=== PATIENT | male | born 1990 | race African-American/Black ===

== ENCOUNTER 2019-02-04 12:59 | Emergency (ER) | payer SELFPAY ==
--- NOTE | 2019-02-04 13:30 | ER Document Report ---
ED Medical Screen (RME) - General Chief Complaint: Psych Problem Stated Complaint: PSYCH EVAL Time Seen by Provider: 02/04/19 13:28 Notes: Patient is a 29-year-old male with a history of bipolar, schizophrenia, ADD, ADHD who presents emergency department with a chief complaint of "wanting help." Patient reports earlier today he did have some suicidal ideation. Patient reports he did not have a specific plan. Patient denies homicidal ideation. Patient reports he is having some depression and anxiety. Patient reports he is not currently taking any medication for his mental health diagnoses. He states he was on Depakote about 1 year ago but they did not make medication changes and he did not start this. Patient reports he does smoke about a half a pack of cigarettes per day, does smoke marijuana occasionally and is a social drinker. TRAVEL OUTSIDE OF THE [place] IN LAST 30 DAYS: No - Related Data Allergies/Adverse Reactions: No Known Allergies Allergy (Verified 02/04/19 13:22) Past Medical History - Social History Chew tobacco use (# tins/day): No Drug Abuse: None Physical Exam - Vital signs Vitals: Temp Pulse Resp BP Pulse Ox 98.5 F 78 16 148/88 H 99 02/04/19 13:06 02/04/19 13:06 02/04/19 13:06 02/04/19 13:06 02/04/19 13:06 - Cardiovascular Rhythm: Regular Heart sounds: Normal auscultation, S1 appreciated, S2 appreciated Course - Re-evaluation Re-evalutation: 02/04/19 13:30 I have greeted and performed a rapid initial assessment of this patient. A comprehensive ED assessment and evaluation of the patient, analysis of test results and completion of the medical decision making process will be conducted by additional ED providers. - Vital Signs Vital signs: Temp Pulse Resp BP Pulse Ox 98.5 F 78 16 148/88 H 99 02/04/19 13:22 02/04/19 13:22 02/04/19 13:22 02/04/19 13:22 02/04/19 13:22
[2019-02-04 13:56] LABS: ABSOLUTE EOSINOPHILS # (AUTO) 0.1 10^3/uL (0.0-0.6); ABSOLUTE LYMPHOCYTES (AUTO) 2.8 10^3/uL (0.5-4.7); ABSOLUTE MONOCYTES (AUTO) 0.4 10^3/uL (0.1-1.4); ABSOLUTE NEUT (AUTO) 3.4 10^3/uL (1.7-8.2); BASOPHILS % (AUTO) 0.6 % (0-2); EOSINOPHILS % (AUTO) 1.2 % (0-6); HEMATOCRIT 47.4 % (37.9-51.0); HEMOGLOBIN 15.7 g/dL (13.5-17.0); LYMPHOCYTES % (AUTO) 41.5 % (13-45); MEAN CORPUSCULAR HEMOGLOBIN 26.3 pg (27.0-33.4); MEAN CORPUSCULAR HGB CONC 33.1 g/dL (32.0-36.0); MEAN CORPUSCULAR VOLUME 80 fl (80-97); MONOCYTES % (AUTO) 6.5 % (3-13); PLATELET COUNT 280 10^3/uL (150-450); RED BLOOD COUNT 5.95 10^6/uL (4.35-5.55); RED CELL DISTRIBUTION WIDTH 14.2 % (11.5-14.0); SEGMENTED NEUTROPHILS % (AUTO) 50.2 % (42-78); TOTAL CELLS COUNTED % (AUTO) 100 %; WHITE BLOOD COUNT 6.7 10^3/uL (4.0-10.5)
[2019-02-04 14:05] LABS: APPEARANCE,URINE CLEAR; BILIRUBIN,URINE NEGATIVE (NEGATIVE); COLOR,URINE YELLOW; GLUCOSE, URINE NEGATIVE (NEGATIVE); KETONES,URINE NEGATIVE (NEGATIVE); LEUKOCYTE ESTERASE,URINE NEGATIVE (NEGATIVE); NITRITE,URINE NEGATIVE (NEGATIVE); PROTEIN,URINE NEGATIVE (NEGATIVE); URINE SPECIFIC GRAVITY 1.019
[2019-02-04 14:19] LABS: ALBUMIN 4.8 g/dL (3.5-5.0); ALKALINE PHOSPHATASE 77 U/L (38-126); ANION GAP 10 (5-19); ASPARTATE AMINO TRANSFERASE 41 U/L (17-59); BILIRUBIN,DIRECT 0.1 mg/dL (0.0-0.4); BLOOD UREA NITROGEN 9 mg/dL (7-20); CALCIUM 9.7 mg/dL (8.4-10.2); CARBON DIOXIDE 28 mmol/L (22-30); CHLORIDE 103 mmol/L (98-107); GLUCOSE 97 mg/dL (75-110); POTASSIUM 4.2 mmol/L (3.6-5.0); TOTAL PROTEIN 8.3 g/dL (6.3-8.2)
[2019-02-04 14:21] LABS: ACETAMINOPHEN < 10 ug/mL (10-30); ALCOHOL < 10 mg/dL (NONE DETECTED); SALICYLATE < 1.0 mg/dL (2.0-20.0)
[2019-02-04 14:24] LABS: URINE AMPHETAMINES SCREEN NEGATIVE; URINE BARBITURATES SCREEN NEGATIVE; URINE BENZODIAZEPINES SCREEN NEGATIVE; URINE COCAINE SCREEN NEGATIVE; URINE METHADONE SCREEN NEGATIVE; URINE PHENCYCLIDINE SCREEN NEGATIVE
[2019-02-04 14:25] LABS: URINE MARIJUANA (THC) SCREEN UNCONFIRMED POSITIVE
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
[2019-02-04 17:39] VITALS: BP 112/74
--- NOTE | 2019-02-04 23:41 | EKG REPORT ---
SEVERITY:- NORMAL ECG - SINUS RHYTHM : Confirmed by: Lissette Jackson MD 04-Feb-2019 23:40:49
== END 2019-02-04 17:39 | disposition home or self-care (01) ==
LOC: ER 12:59
DX: F29 Unspecified psychosis not due to a substance or known physiological condition (principal); F31.9 Bipolar disorder, unspecified; F20.9 Schizophrenia, unspecified; F17.210 Nicotine dependence, cigarettes, uncomplicated
CPT/HCPCS: 36415; 80053; 80307; 81001; 85025; 93005; 93010; 99285

== ENCOUNTER 2019-02-05 03:46 | Emergency (ER) | payer SELFPAY ==
--- NOTE | 2019-02-05 04:21 | ER Document Report ---
ED General - General Chief Complaint: Depression Stated Complaint: Depressed Time Seen by Provider: 02/05/19 04:02 Notes: Patient is a 29-year-old male that comes the emergency department for chief complaint of feeling depressed and feeling tired. He states that he was here earlier today and had tests, he states that he was evaluated and then discharged. He states that he is here from [place] to be with his girlfriend, he states that he "something happened between us" and he became upset and now he has nowhere to go. He states that he thought that when he was leaving from here he could be given a ride back to [place] but he called the person who gave him a ride in the first place and they told him they were unable to. Patient states he wandered around and started feeling weak and came back in to see if he could get additional assistance because he could not go back to [place]. Patient reports he has a history of schizophrenia, bipolar, ADHD, states he used to be on Depakote but is not on anything currently and has not taken anything in months. He smokes marijuana occasionally, denies recreational drugs otherwise. Denies any other medical history. He states that he is depressed with his situation but he is not homicidal or suicidal. Patient states now that he is here he is hoping like he can be provided with medication for depression and additional psychiatric services. TRAVEL OUTSIDE OF THE [place] IN LAST 30 DAYS: No - Related Data Allergies/Adverse Reactions: No Known Allergies Allergy (Verified 02/04/19 13:22) Past Medical History - General Information source: Patient - Social History Smoking Status: Never Smoker Frequency of alcohol use: Occasional Drug Abuse: Marijuana Lives with: Alone Family History: Reviewed & Not Pertinent Psychiatric Medical History: Reports: Hx Attention Deficit Hyperactivity Disorder, Hx Bipolar Disorder, Hx Schizophrenia Surgical Hx: Negative - Immunizations Immunizations up to date: Yes Hx Diphtheria, Pertussis, Tetanus Vaccination: Yes Review of Systems - Review of Systems Constitutional: See HPI EENT: No symptoms reported Cardiovascular: No symptoms reported Respiratory: No symptoms reported Gastrointestinal: No symptoms reported Genitourinary: No symptoms reported Male Genitourinary: No symptoms reported Musculoskeletal: No symptoms reported Skin: No symptoms reported Hematologic/Lymphatic: No symptoms reported Neurological/Psychological: See HPI Physical Exam - Vital signs Vitals: Temp Pulse Resp BP Pulse Ox 97.7 F 78 14 149/84 H 99 02/05/19 03:55 02/05/19 03:55 02/05/19 03:55 02/05/19 03:55 02/05/19 03:55 - Notes Notes: GENERAL: Alert, interacts well. No acute distress. HEAD: Normocephalic, atraumatic. EYES: Pupils equal, round, and reactive to light. Extraocular movements intact. ENT: Oral mucosa moist, tongue midline. Oropharynx unremarkable. Airway patent. NECK: Full range of motion. Supple. Trachea midline. LUNGS: Clear to auscultation bilaterally, no wheezes, rales, or rhonchi. No respiratory distress. HEART: Regular rate and rhythm. No murmur ABDOMEN: Soft, non-tender. Non-distended. EXTREMITIES: Moves all 4 extremities spontaneously. No edema, normal radial and dorsalis pedis pulses bilaterally. No cyanosis. BACK: no cervical, thoracic, lumbar midline tenderness. No saddle anesthesia, normal distal neurovascular exam. Moves all extremities in full range of motion. NEUROLOGICAL: Alert and oriented x3. Normal speech. Cranial nerves II through XII grossly intact. PSYCH: Patient makes poor eye contact but answers questions appropriately and does not appear to be responding to internal stimuli SKIN: Warm, dry, normal turgor. No rashes or lesions noted. Course - Re-evaluation Re-evalutation: Patient just completed an IVC work-up which was normal. Patient was complaining that he felt weak but on my evaluation he denies any symptoms, vital signs unremarkable, his examination is unremarkable, he is alert and well-appearing. Work-up will not be repeated because this was completed within 24 hours and there is no indication that patient has had decompensation. Patient is requesting mental health evaluation and assistance including possible medication such as Depakote. He is requesting to be evaluated by them. Patient is not homicidal, suicidal, or acutely psychotic, he will not be placed on IVC paperwork. Discussed with Dr. Naidu. Patient is here voluntary, medically cleared, pending repeated psychiatric evaluation by the mental health team. - Vital Signs Vital signs: Temp Pulse Resp BP Pulse Ox 97.7 F 78 14 149/84 H 99 02/05/19 04:23 02/05/19 04:23 02/05/19 04:23 02/05/19 04:23 02/05/19 04:23 Discharge - Discharge Clinical Impression: Depressed mood, Homelessness Schizophrenia Qualifiers: Schizophrenia type: unspecified Qualified Code(s): F20.9 - Schizophrenia, unspecified Condition: Stable Disposition: PSYCH HOSP/UNIT
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
--- NOTE | 2019-02-05 10:31 | ER Document Report ---
Doctor's Note Notes: 02/05/19 10:31 29-year-old male here for depression and homelessness. As the rounding provider this AM, I assessed the patient's labs, vitals, and records. No concerning findings this morning. Patient denies any acute complaints. Patient is cleared for disposition by psychiatry. It appears the patient is medically stable for transfer or discharge and mental health wishes to discharge patient with close follow-up services in place.
[2019-02-05] MEDS ORDERED: OLANZAPINE 2.5 MG TABLET PO ONE (10:32)
[2019-02-05 10:48] VITALS: BP 134/90
== END 2019-02-05 10:43 | disposition home or self-care (01) ==
LOC: ER 03:46
DX: F32.9 Major depressive disorder, single episode, unspecified (principal); Z59.0 Homelessness; R53.83 Other fatigue; F12.10 Cannabis abuse, uncomplicated; Z63.0 Problems in relationship with spouse or partner
CPT/HCPCS: 99284; J3490

== ENCOUNTER 2019-05-18 03:38 | Emergency (ER) | payer MEDICARE, MEDICAID ==
[2019-05-18] MEDS ORDERED: MAG HYDROX/AL HYDROX/SIMETH SUSP 30 ML UDCUP PO ONE (03:51)
[2019-05-18] MEDS ORDERED: NORMAL SALINE 1000 ML 1,000 ML IV ONE (03:51)
[2019-05-18] MEDS ORDERED: LIDOCAINE 2% VISCOUS SOLN 15 ML UDCUP PO ONE (03:51)
[2019-05-18] MEDS ORDERED: ONDANSETRON HCL INJ/PF 4 MG/2 ML SDV IV ONE (03:51)
[2019-05-18 03:53] VITALS: BP 126/83
--- NOTE | 2019-05-18 03:54 | ER Document Report ---
ED GI/ - General Chief Complaint: abd pain, nausea Stated Complaint: ABDOMINAL PAIN,NAUSEA,VOMITING Time Seen by Provider: 05/18/19 03:44 Mode of Arrival: Ambulatory Information source: Patient Notes: Patient presents stating he developed upper abdominal tenderness about an hour and a half ago. Patient states that he was awake at that time. Patient reports nausea but denies any vomiting or diarrhea. Patient denies any fever. Patient denies any urinary symptoms. Patient states that he is concerned that he is dehydrated. TRAVEL OUTSIDE OF THE [place] IN LAST 30 DAYS: No - HPI Patient complains to provider of: Abdominal pain Onset: Just prior to arrival Timing/Duration: Sudden Quality of pain: Achy Location: Epigastric Associated symptoms: Nausea. denies: Diarrhea, Dizzy, Dysuria, Fever, Loss of appetite, Urinary hesitancy, Urinary frequency, Urinary retention, Urinary urgency, Vomiting Exacerbated by: Denies Relieved by: Denies Similar symptoms previously: No Recently seen / treated by doctor: No - Related Data Allergies/Adverse Reactions: No Known Allergies Allergy (Verified 02/04/19 13:22) Past Medical History - General Information source: Patient - Social History Smoking Status: Current Some Day Smoker Chew tobacco use (# tins/day): No Frequency of alcohol use: Social Drug Abuse: Marijuana Occupation: None Family History: Reviewed & Not Pertinent Patient has suicidal ideation: No Patient has homicidal ideation: No GI Medical History: Reports: Hx Gastroesophageal Reflux Disease Psychiatric Medical History: Reports: Hx Attention Deficit Hyperactivity Disorder, Hx Bipolar Disorder, Hx Schizophrenia Surgical Hx: Negative - Immunizations Immunizations up to date: Yes Hx Diphtheria, Pertussis, Tetanus Vaccination: Yes Review of Systems - Review of Systems Constitutional: No symptoms reported. denies: Fever EENT: No symptoms reported Cardiovascular: No symptoms reported. denies: Chest pain Respiratory: No symptoms reported. denies: Cough Gastrointestinal: Abdominal pain, Nausea. denies: Diarrhea, Vomiting Genitourinary: No symptoms reported. denies: Dysuria, Flank pain Male Genitourinary: No symptoms reported Musculoskeletal: No symptoms reported. denies: Back pain Skin: No symptoms reported Hematologic/Lymphatic: No symptoms reported Neurological/Psychological: No symptoms reported Physical Exam - Vital signs Vitals: Temp Pulse Resp BP Pulse Ox 98.3 F 94 18 126/83 H 96 05/18/19 03:51 05/18/19 03:51 05/18/19 03:51 05/18/19 03:51 05/18/19 03:51 - General General appearance: Appears well, Alert In distress: None - HEENT Head: Normocephalic, Atraumatic Eyes: Normal Conjunctiva: Normal Nasal: Normal Mouth/Lips: Normal Mucous membranes: Normal Neck: Normal, Supple. No: Lymphadenopathy - Respiratory Respiratory status: No respiratory distress Chest status: Nontender Breath sounds: Normal. No: Rales, Rhonchi, Stridor, Wheezing Chest palpation: Normal - Cardiovascular Rhythm: Regular Heart sounds: S1 appreciated, S2 appreciated Murmur: No - Abdominal Inspection: Normal Distension: No distension Bowel sounds: Normal Tenderness: Tender - epigastric. No: Guarding - Back Back: Normal, Nontender. No: CVA tenderness - Extremities General upper extremity: Normal inspection, Normal ROM General lower extremity: Normal inspection, Normal ROM - Neurological Neuro grossly intact: Yes Cognition: Normal [place] Coma Scale Eye Opening: Spontaneous Leda Coma Scale Verbal: Oriented Leda Coma Scale Motor: Obeys Commands [place] Coma Scale Total: 15 - Psychological Associated symptoms: Normal affect, Normal mood - Skin Skin Temperature: Warm Skin Moisture: Dry Skin Color: Normal Course - Re-evaluation Re-evalutation: 05/18/19 05:48 Patient reports nausea is resolved. Abdomen soft nontender. Patient otherwise nontoxic in appearance. Patient presents with abdominal pain without signs of peritonitis or other life-threatening or serious etiology. Patient appears stable for discharge and has been instructed to return immediately if the symptoms worsen in any way. - Vital Signs Vital signs: Temp Pulse Resp BP Pulse Ox 98.3 F 94 18 126/83 H 96 05/18/19 03:54 05/18/19 03:54 05/18/19 03:54 05/18/19 03:54 05/18/19 03:54 - Laboratory Result Diagrams: 05/18/19 04:29 05/18/19 04:29 Laboratory results interpreted by me: 05/18/19 05/18/19 04:29 04:29 RBC 5.81 H MCV 78 L MCH 26.6 L Lipase 21.2 L Labs- Entire Visit 05/18/19 05/18/19 04:29 04:29 WBC 7.4 RBC 5.81 H Hgb 15.5 Hct 45.6 MCV 78 L MCH 26.6 L MCHC 34.0 RDW 13.9 Plt Count 301 Lymph % (Auto) 34.6 [place] % (Auto) 5.6 Eos % (Auto) 0.7 Baso % (Auto) 0.3 Absolute Neuts (auto) 4.3 Absolute Lymphs (auto) 2.6 Absolute Monos (auto) 0.4 Absolute Eos (auto) 0.1 Absolute Basos (auto) 0.0 Seg Neutrophils % 58.8 Sodium 140.4 Potassium 4.0 Chloride 106 Carbon Dioxide 26 Anion Gap 8 BUN 8 Creatinine 0.90 Est GFR ( Amer) > 60 Est GFR (MDRD) Non-Af > 60 Glucose 89 Calcium 9.0 Total Bilirubin 1.0 Direct Bilirubin 0.0 Neonat Total Bilirubin Not Reportable Neonat Direct Bilirubin Not Reportable Neonat Indirect Bili Not Reportable AST 34 ALT 36 Alkaline Phosphatase 78 Total Protein 7.9 Albumin 4.6 Lipase 21.2 L Discharge - Discharge Clinical Impression: Nausea Abdominal pain Qualifiers: Abdominal location: epigastric Qualified Code(s): R10.13 - Epigastric pain Condition: Stable Disposition: HOME, SELF-CARE Instructions: Abdominal Pain ([facility]), Antinausea Medication ([facility]) Additional Instructions: Return immediately for any new or worsening symptoms Followup with your primary care provider, call tomorrow to make a followup appointment Prescriptions: Famotidine [Pepcid 20 mg Tablet] 20 mg PO BID #12 tablet Ondansetron [Zofran Odt 4 mg Tablet] 1 tab PO Q6H #15 tab.rapdis Referrals: [facility] [Provider Group] - Follow up as needed [facility] [Provider Group] - Follow up as needed
[2019-05-18 04:58] LABS: ABSOLUTE EOSINOPHILS # (AUTO) 0.1 10^3/uL (0.0-0.6); ABSOLUTE LYMPHOCYTES (AUTO) 2.6 10^3/uL (0.5-4.7); ABSOLUTE MONOCYTES (AUTO) 0.4 10^3/uL (0.1-1.4); ABSOLUTE NEUT (AUTO) 4.3 10^3/uL (1.7-8.2); BASOPHILS % (AUTO) 0.3 % (0-2); EOSINOPHILS % (AUTO) 0.7 % (0-6); HEMATOCRIT 45.6 % (37.9-51.0); HEMOGLOBIN 15.5 g/dL (13.5-17.0); LYMPHOCYTES % (AUTO) 34.6 % (13-45); MEAN CORPUSCULAR HEMOGLOBIN 26.6 pg (27.0-33.4); MEAN CORPUSCULAR VOLUME 78 fl (80-97); MONOCYTES % (AUTO) 5.6 % (3-13); PLATELET COUNT 301 10^3/uL (150-450); RED BLOOD COUNT 5.81 10^6/uL (4.35-5.55); RED CELL DISTRIBUTION WIDTH 13.9 % (11.5-14.0); SEGMENTED NEUTROPHILS % (AUTO) 58.8 % (42-78); TOTAL CELLS COUNTED % (AUTO) 100 %; WHITE BLOOD COUNT 7.4 10^3/uL (4.0-10.5)
[2019-05-18 05:18] LABS: ALBUMIN 4.6 g/dL (3.5-5.0); ALKALINE PHOSPHATASE 78 U/L (38-126); ANION GAP 8 (5-19); ASPARTATE AMINO TRANSFERASE 34 U/L (17-59); BLOOD UREA NITROGEN 8 mg/dL (7-20); CARBON DIOXIDE 26 mmol/L (22-30); CHLORIDE 106 mmol/L (98-107); GLUCOSE 89 mg/dL (75-110); TOTAL PROTEIN 7.9 g/dL (6.3-8.2)
== END 2019-05-18 06:14 | disposition home or self-care (01) ==
LOC: ER 03:38
DX: R11.0 Nausea (principal); R10.13 Epigastric pain; F17.200 Nicotine dependence, unspecified, uncomplicated; K21.9 Gastro-esophageal reflux disease without esophagitis
CPT/HCPCS: 99284; 96361; 96374; 36415; 83690; 85025; 80053; J3490; A9270; J2405; J7030

== ENCOUNTER 2019-05-18 06:43 | Emergency (ER) | payer MEDICARE, MEDICAID ==
--- NOTE | 2019-05-18 07:49 | ER Document Report ---
ED Psych Disorder / Suicide - General Mode of Arrival: Ambulatory Information source: Patient TRAVEL OUTSIDE OF THE [place] IN LAST 30 DAYS: No - HPI Patient complains to provider of: Suicidal ideation Onset: Just prior to arrival Pain Level: Denies Suicide Risk Factors: Depressed, Schizophrenia Situational problems related to: Significant other Suicide Attempt Method: Stabbing/Cutting Associated symptoms: Normal affect, Normal mood - Related Data Home Medications: pt was on depakote and another med, hasn't had any for 5 mnths - General Chief Complaint: Psych Problem Stated Complaint: PSYCH CONSULTATION Time Seen by Provider: 05/18/19 07:42 Primary Care Provider: [facility] [Outside] - Follow up as needed Notes: Patient was just discharged from the hospital for resolved abdominal pain. Patient states that while he was waiting in the lobby for his ride he started to have thoughts of wanting to hurt himself. Patient states that he thought about cutting himself. Pt reports a history of depression and being off his medication for the past 5 months. (MARIA C ABBOTT) - Related Data Allergies/Adverse Reactions: No Known Allergies Allergy (Verified 02/04/19 13:22) Past Medical History - General Information source: Patient - Social History Smoking Status: Current Every Day Smoker Frequency of alcohol use: Occasional Drug Abuse: Marijuana Lives with: Friend Family History: Reviewed & Not Pertinent Patient has suicidal ideation: Yes Patient has homicidal ideation: No GI Medical History: Reports: Hx Gastroesophageal Reflux Disease Psychiatric Medical History: Reports: Hx Attention Deficit Hyperactivity Disorder, Hx Bipolar Disorder, Hx Schizophrenia Surgical Hx: Negative - Immunizations Immunizations up to date: Yes Hx Diphtheria, Pertussis, Tetanus Vaccination: Yes Review of Systems - Review of Systems Constitutional: No symptoms reported EENT: No symptoms reported Cardiovascular: No symptoms reported Respiratory: No symptoms reported. denies: Cough Gastrointestinal: Abdominal pain - earlier today, now resolved Genitourinary: No symptoms reported Male Genitourinary: No symptoms reported Musculoskeletal: No symptoms reported Skin: No symptoms reported Hematologic/Lymphatic: No symptoms reported Neurological/Psychological: Suicidal ideation Physical Exam - General General appearance: Appears well, Alert In distress: None - HEENT Head: Normocephalic, Atraumatic Eyes: Normal Conjunctiva: Normal Nasal: Normal Mouth/Lips: Normal Mucous membranes: Normal - Respiratory Respiratory status: No respiratory distress Chest status: Nontender Breath sounds: Normal. No: Rales, Rhonchi, Stridor, Wheezing Chest palpation: Normal - Cardiovascular Rhythm: Regular Heart sounds: S1 appreciated, S2 appreciated - Back Back: Normal - Extremities General upper extremity: Normal inspection, Normal ROM General lower extremity: Normal inspection, Normal ROM - Neurological Neuro grossly intact: Yes Cognition: Normal Leda Coma Scale Eye Opening: Spontaneous [place] Coma Scale Verbal: Oriented [place] Coma Scale Motor: Obeys Commands [place] Coma Scale Total: 15 - Psychological Associated symptoms: Normal affect, Normal mood - Skin Skin Temperature: Warm Skin Moisture: Dry Skin Color: Normal - Vital signs Vitals: Temp Pulse Resp BP Pulse Ox 98.0 F 76 16 136/85 H 96 05/18/19 06:49 05/18/19 06:49 05/18/19 06:49 05/18/19 06:49 05/18/19 06:49 Course - Re-evaluation Re-evalutation: 05/18/19 10:25 Pt has no new concerns or complaints. He is feeling better overall. Pt was seen for MH evaluation/depression. Vitals acceptable. Pt has been medically cleared and cleared by our MH team. No active SI/HI. Pt stable for discharge. Resources have been provided. Patient is to return to the ED with any other worsening/concerning symptoms. Low suspicion for any other systemic or emergent condition at this time. Patient is in agreement. (AUDREY HOWARD) - Vital Signs Vital signs: Temp Pulse Resp BP Pulse Ox 98.0 F 76 16 136/85 H 96 05/18/19 06:49 05/18/19 06:49 05/18/19 06:49 05/18/19 06:49 05/18/19 06:49 - Laboratory Laboratory results interpreted by me: 05/18/19 05/18/19 08:03 08:03 Urine Protein 30 H Urine Urobilinogen 4.0 H Salicylates < 1.0 L Acetaminophen < 10 L Discharge - Discharge Clinical Impression: Homeless Depression Qualifiers: Depression Type: unspecified Qualified Code(s): F32.9 - Major depressive disorder, single episode, unspecified Condition: Stable Disposition: HOME, SELF-CARE Additional Instructions: You have been evaluated by both medical and behavioral health teams for Suicidal Ideation and have been deemed appropriate for discharge. While in the emergency department you received the following services: Medical screening and assessment, nursing services, dietary services, one-on-one counseling and/or psychotherapy, environmental services, and continuous observation by a patient human resources safety manager. You have been provided a local resource list of area providers for mental health, economic assistance and mobile crisis contact information. DEPRESSION: Your evaluation reveals that you have mental depression. While symptoms may be vague, they often include disturbance of sleep, fatigue, loss of appetite, and general loss of interest in life. While depression may be a side effect of drugs, or a reaction to a major change in your life, many cases have no known cause. If depression is acute, and related to a major loss in your life, you can expect it to clear completely with time. If you have been depressed a long time, are prone to repeated bouts of depression or low mood, or have been thinking of suicide, get help. Depression can be treated with anti-depressant medication and counselling. Long-term depression will often take a few weeks to clear, even with appropriate medication. Follow-up care is important. SUICIDAL IDEATION: Suicidal ideation is a common medical term for thoughts about suicide, which may be as detailed as a formulated plan, without the suicidal act itself. Although most people who undergo suicidal ideation do not commit suicide, some go on to make suicide attempts. The range of suicidal ideation varies greatly from fleeting to detailed planning, role playing, and unsuccessful attempts. While thoughts about suicide are common, most people do not carry out serious actions to commit suicide. Based upon your evaluation and discussion with you, we do not believe you are currently at risk to act upon your thoughts of suicide. You have agreed to return to the Emergency Department, at any time, if you feel inclined to act upon your suicidal thoughts. FOLLOW-UP CARE: If you have been referred to a physician for follow-up care, call the physicians office for an appointment as you were instructed or within the next two days. If you experience worsening or a significant change in your symptoms, notify the physician immediately or return to the Emergency Department at any time for re-evaluation. Maintain adequate fluid and food intake Healthy diet tylenol/motrin if needed Monitor for any worsening symptoms Avoid drug/alcohol use Make sure you are staying hydrated enough to urinate and have normal BM's Recheck with your PCM in 3-5 days or as needed Schedule appointment with mental health clinic Return to the ED with any worsening symptoms and/or development of fever, headache, changes in behavior/mentation/vision/speech, chest pain, palpitations, syncope, shortness of breath, trouble breathing, abdominal pain, n/v/d, blood in stool/urine, loss of control of bowel/bladder, urinary retention, muscle weakness/paralysis, saddle anesthesia, numbness/tingling, suicidal/homicidal ideations, visual/auditory hallucinations, or other worsening symptoms that are concerning to you. Forms: Elevated Blood Pressure Referrals: [facility] [Outside] - Follow up as needed
[2019-05-18 08:23] LABS: APPEARANCE,URINE SLIGHTLY-CLOUDY; BILIRUBIN,URINE NEGATIVE (NEGATIVE); COLOR,URINE AMBER; GLUCOSE, URINE NEGATIVE (NEGATIVE); KETONES,URINE NEGATIVE (NEGATIVE); LEUKOCYTE ESTERASE,URINE NEGATIVE (NEGATIVE); NITRITE,URINE NEGATIVE (NEGATIVE); PROTEIN,URINE 30 mg/dL (NEGATIVE); URINE SPECIFIC GRAVITY 1.031
[2019-05-18 08:42] LABS: URINE AMPHETAMINES SCREEN NEGATIVE; URINE BARBITURATES SCREEN NEGATIVE; URINE BENZODIAZEPINES SCREEN NEGATIVE; URINE COCAINE SCREEN NEGATIVE; URINE METHADONE SCREEN NEGATIVE; URINE PHENCYCLIDINE SCREEN NEGATIVE
[2019-05-18 08:44] LABS: ACETAMINOPHEN < 10 ug/mL (10-30); ALCOHOL < 10 mg/dL (NONE DETECTED); SALICYLATE < 1.0 mg/dL (2.0-20.0)
[2019-05-18 08:46] LABS: URINE MARIJUANA (THC) SCREEN UNCONFIRMED POSITIVE
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
[2019-05-18 10:48] VITALS: BP 125/60
--- NOTE | 2019-05-18 18:26 | EKG REPORT ---
SEVERITY:- NORMAL ECG - SINUS RHYTHM : Confirmed by: Lissette Jackson MD 18-May-2019 18:25:25
== END 2019-05-18 10:58 | disposition home or self-care (01) ==
LOC: ER 06:43
DX: R45.851 Suicidal ideations (principal); F32.9 Major depressive disorder, single episode, unspecified; F20.9 Schizophrenia, unspecified; Z59.0 Homelessness; F17.200 Nicotine dependence, unspecified, uncomplicated; K21.9 Gastro-esophageal reflux disease without esophagitis
CPT/HCPCS: 36415; 80307; 81001; 93005; 93010; 99285

== ENCOUNTER 2019-05-18 21:26 | Emergency (ER) | payer MEDICARE, MEDICAID ==
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
[2019-05-18 22:22] LABS: ABSOLUTE BASOPHILS # (AUTO) 0.1 10^3/uL (0.0-0.2); ABSOLUTE EOSINOPHILS # (AUTO) 0.1 10^3/uL (0.0-0.6); ABSOLUTE MONOCYTES (AUTO) 0.7 10^3/uL (0.1-1.4); HEMOGLOBIN 14.9 g/dL (13.5-17.0); TOTAL CELLS COUNTED % (AUTO) 100 %
[2019-05-18 22:29] LABS: APPEARANCE,URINE CLEAR; BILIRUBIN,URINE NEGATIVE (NEGATIVE); COLOR,URINE YELLOW; GLUCOSE, URINE NEGATIVE (NEGATIVE); KETONES,URINE NEGATIVE (NEGATIVE); LEUKOCYTE ESTERASE,URINE NEGATIVE (NEGATIVE); NITRITE,URINE NEGATIVE (NEGATIVE); PROTEIN,URINE NEGATIVE (NEGATIVE); URINE SPECIFIC GRAVITY 1.027
[2019-05-18 22:31] LABS: ABSOLUTE LYMPHOCYTES (AUTO) 3.8 10^3/uL (0.5-4.7); ABSOLUTE NEUT (AUTO) 4.4 10^3/uL (1.7-8.2); BASOPHILS % (AUTO) 0.6 % (0-2); EOSINOPHILS % (AUTO) 1.2 % (0-6); HEMATOCRIT 44.7 % (37.9-51.0); LYMPHOCYTES % (AUTO) 41.9 % (13-45); MEAN CORPUSCULAR HEMOGLOBIN 26.6 pg (27.0-33.4); MEAN CORPUSCULAR HGB CONC 33.5 g/dL (32.0-36.0); MEAN CORPUSCULAR VOLUME 79 fl (80-97); MONOCYTES % (AUTO) 7.8 % (3-13); PLATELET COUNT 301 10^3/uL (150-450); RED BLOOD COUNT 5.62 10^6/uL (4.35-5.55); RED CELL DISTRIBUTION WIDTH 13.9 % (11.5-14.0); SEGMENTED NEUTROPHILS % (AUTO) 48.5 % (42-78)
--- NOTE | 2019-05-18 22:43 | ER Document Report ---
ED Psych Disorder / Suicide - General Mode of Arrival: Ambulatory Information source: Patient TRAVEL OUTSIDE OF THE [place] IN LAST 30 DAYS: No - HPI Patient complains to provider of: Suicidal ideation Onset: Yesterday Pain Level: Denies Suicide Risk Factors: Depressed, Lack of social support Situational problems related to: Significant other Associated symptoms: Depressed Similar symptoms previously: Yes Recently seen / treated by doctor: Yes <MARIA C ABBOTT - Last Filed: 05/19/19 06:59> <ANA YUNG - Last Filed: 05/19/19 08:06> <AUDREY HOWARD - Last Filed: 05/19/19 09:19> - General Chief Complaint: Psych Problem Stated Complaint: SUICIDAL IDEATION Time Seen by Provider: 05/18/19 21:44 Primary Care Provider: [facility] [Outside] - Follow up as needed Notes: Patient presents stating that he has felt depressed and had thoughts of harming himself. Patient was seen earlier today and discharged with outpatient resource information. Patient states that all the places that he went were at capacity. Patient also acknowledges that he is homeless but states that he does not feel that the shelters will have space for him either. Patient does have a history of depression and schizophrenia and has been off of any medications for over 5 months. Patient does report recently getting into an argument with significant other which prompted his visit earlier this morning. (MARIA C ABBOTT) - Related Data Allergies/Adverse Reactions: No Known Allergies Allergy (Verified 02/04/19 13:22) Past Medical History - General Information source: Patient - Social History Smoking Status: Never Smoker Frequency of alcohol use: None Drug Abuse: Marijuana Lives with: Homeless Family History: Reviewed & Not Pertinent Patient has suicidal ideation: Yes Patient has homicidal ideation: Yes GI Medical History: Reports: Hx Gastroesophageal Reflux Disease Psychiatric Medical History: Reports: Hx Attention Deficit Hyperactivity Disorder, Hx Bipolar Disorder, Hx Depression, Hx Schizophrenia Surgical Hx: Negative - Immunizations Immunizations up to date: Yes Hx Diphtheria, Pertussis, Tetanus Vaccination: Yes <MARIA C ABBOTT - Last Filed: 05/19/19 06:59> Review of Systems - Review of Systems Constitutional: No symptoms reported EENT: No symptoms reported Cardiovascular: No symptoms reported Respiratory: No symptoms reported Gastrointestinal: No symptoms reported Genitourinary: No symptoms reported Male Genitourinary: No symptoms reported Musculoskeletal: No symptoms reported Skin: No symptoms reported Hematologic/Lymphatic: No symptoms reported Neurological/Psychological: Suicidal ideation <MARIA C ABBOTT - Last Filed: 05/19/19 06:59> Physical Exam - General General appearance: Appears well, Alert <MARIA C ABBOTT - Last Filed: 05/19/19 06:59> - Vital signs Vitals: Temp Pulse Resp BP Pulse Ox 98.7 F 75 16 157/81 H 98 05/18/19 21:41 05/18/19 21:41 05/18/19 21:41 05/18/19 21:41 05/18/19 21:41 - General Notes: PHYSICAL EXAMINATION: GENERAL: Well-appearing and in no acute distress. HEAD: Atraumatic, normocephalic. EYES: sclera anicteric, conjunctiva are normal. ENT: nares patent. Moist mucous membranes. NECK: Normal range of motion, supple without lymphadenopathy LUNGS: CTAB and equal. No wheezes rales or rhonchi. HEART: Regular rate and rhythm without murmurs ABDOMEN: Soft, nontender, normal bowel sounds, no guarding. EXTREMITIES: Normal range of motion, no pitting edema. BACK: No midline tenderness, no step-off or deformity. No CVA tenderness NEUROLOGICAL: Cranial nerves grossly intact. Normal speech. Normal gait. PSYCH: Normal mood, normal affect. SKIN: Warm, Dry, normal turgor, no rashes or lesions noted (MARIA C ABBOTT) Course - Laboratory Result Diagrams: 05/18/19 22:01 05/18/19 22:01 <MARIA C ABBOTT - Last Filed: 05/19/19 06:59> - Laboratory Result Diagrams: 05/18/19 22:01 05/18/19 22:01 <ANA YUNG - Last Filed: 05/19/19 08:06> - Laboratory Result Diagrams: 05/18/19 22:01 05/18/19 22:01 <AUDREY HOWARD - Last Filed: 05/19/19 09:19> - Re-evaluation Re-evalutation: 05/19/19 07:00 Patient's labs reviewed, patient medically clear for discharge or transfer pending mental health evaluation. (MARIA C ABBOTT) 05/19/19 09:18 Patient has been medically cleared last night and has been evaluated and cleared by our mental health team. Vitals are acceptable. PE is otherwise unremarkable. Patient has no new concerns or complaints. He is nontoxic- appearing and is tolerating p.o. without difficulty. Patient was provided with resources. He has no SI or HI at this time. Low suspicion for any sepsis, endocarditis, acute intracranial pathology, meningitis, fracture, acute abdomen, acute withdrawal, or other systemic infection at this time. Patient is aware that this condition can change from initial presentation and needs to monitor symptoms closely for any acute changes. Conservative measures otherwise for symptoms. Recheck with your PCM in 3-5 days or as needed otherwise. Return to the ED with any worsening/concerning symptoms otherwise as reviewed discharge. Patient is in agreement. (AUDREY HOWARD) - Vital Signs Vital signs: Temp Pulse Resp BP Pulse Ox 98.1 F 73 16 139/78 H 99 05/19/19 05:55 05/19/19 05:55 05/19/19 05:55 05/19/19 05:55 05/19/19 05:55 - Laboratory Laboratory results interpreted by me: 05/18/19 05/18/19 05/18/19 22:01 22:01 22:01 RBC 5.62 H MCV 79 L MCH 26.6 L Urine Blood MODERATE H Urine Urobilinogen 4.0 H Salicylates < 1.0 L Acetaminophen < 10 L Discharge <MARIA C ABBOTT - Last Filed: 05/19/19 06:59> <ANA YUNG - Last Filed: 05/19/19 08:06> <AUDREY HOWARD - Last Filed: 05/19/19 09:19> - Discharge Clinical Impression: Homeless Depression Qualifiers: Depression Type: unspecified Qualified Code(s): F32.9 - Major depressive disorder, single episode, unspecified Condition: Stable Disposition: HOME, SELF-CARE Additional Instructions: You have been evaluated by both medical and behavioral health teams for Suicidal Ideation and have been deemed appropriate for discharge. While in the emergency department you received the following services: Medical screening and assessment, nursing services, dietary services, one-on-one counseling and/or psychotherapy, environmental services, and continuous observation by a patient safety lead. You have been provided a local resource list of area providers for mental health , economic assistance and mobile crisis contact information. DEPRESSION: Your evaluation reveals that you have mental depression. While symptoms may be vague, they often include disturbance of sleep, fatigue, loss of appetite, and general loss of interest in life. While depression may be a side effect of drugs, or a reaction to a major change in your life, many cases have no known cause. If depression is acute, and related to a major loss in your life, you can expect it to clear completely with time. If you have been depressed a long time, are prone to repeated bouts of depression or low mood, or have been thinking of suicide, get help. Depression can be treated with anti-depressant medication and counselling. Long-term depression will often take a few weeks to clear, even with appropriate medication. Follow-up care is important. SUICIDAL IDEATION: Suicidal ideation is a common medical term for thoughts about suicide, which may be as detailed as a formulated plan, without the suicidal act itself. Although most people who undergo suicidal ideation do not commit suicide, some go on to make suicide attempts. The range of suicidal ideation varies greatly from fleeting to detailed planning, role playing, and unsuccessful attempts. While thoughts about suicide are common, most people do not carry out serious actions to commit suicide. Based upon your evaluation and discussion with you, we do not believe you are currently at risk to act upon your thoughts of suicide. You have agreed to return to the Emergency Department, at any time, if you feel inclined to act upon your suicidal thoughts. FOLLOW-UP CARE: If you have been referred to a physician for follow-up care, call the physicians office for an appointment as you were instructed or within the next two days. If you experience worsening or a significant change in your symptoms, notify the physician immediately or return to the Emergency Department at any time for re-evaluation. Maintain adequate fluid and food intake Healthy diet tylenol/motrin if needed Monitor for any worsening symptoms Avoid drug/alcohol use Stop smoking if you are Make sure you are staying hydrated enough to urinate and have normal BM's Recheck with PCM Utilize mobile crisis when needed Return to the ED with any worsening symptoms and/or development of fever, headache, changes in behavior/mentation/vision/speech, chest pain, palpitations, syncope, shortness of breath, trouble breathing, abdominal pain, n/v/d, blood in stool/urine, loss of control of bowel/bladder, urinary retention, muscle weakness/paralysis, saddle anesthesia, numbness/tingling, suicidal/homicidal ideations, visual/auditory hallucinations, or other worsening symptoms that are concerning to you. Forms: Elevated Blood Pressure Referrals: [facility] [Outside] - Follow up as needed
[2019-05-18 22:46] LABS: ACETAMINOPHEN < 10 ug/mL (10-30); ALBUMIN 4.6 g/dL (3.5-5.0); ALCOHOL < 10 mg/dL (NONE DETECTED); ALKALINE PHOSPHATASE 77 U/L (38-126); ANION GAP 10 (5-19); ASPARTATE AMINO TRANSFERASE 37 U/L (17-59); BILIRUBIN,DIRECT 0.3 mg/dL (0.0-0.4); BILIRUBIN,TOTAL 1.1 mg/dL (0.2-1.3); BLOOD UREA NITROGEN 13 mg/dL (7-20); CALCIUM 9.4 mg/dL (8.4-10.2); CARBON DIOXIDE 29 mmol/L (22-30); CHLORIDE 104 mmol/L (98-107); GLUCOSE 89 mg/dL (75-110); POTASSIUM 4.5 mmol/L (3.6-5.0); SALICYLATE < 1.0 mg/dL (2.0-20.0)
[2019-05-18 22:54] LABS: URINE AMPHETAMINES SCREEN NEGATIVE; URINE BARBITURATES SCREEN NEGATIVE; URINE BENZODIAZEPINES SCREEN NEGATIVE; URINE COCAINE SCREEN NEGATIVE; URINE MARIJUANA (THC) SCREEN UNCONFIRMED POSITIVE; URINE METHADONE SCREEN NEGATIVE; URINE PHENCYCLIDINE SCREEN NEGATIVE
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
[2019-05-19 09:56] VITALS: BP 147/82
--- NOTE | 2019-05-19 13:54 | EKG REPORT ---
SEVERITY:- NORMAL ECG - SINUS RHYTHM : Confirmed by: Lissette Jackson MD 19-May-2019 13:54:09
== END 2019-05-19 09:57 | disposition home or self-care (01) ==
LOC: ER 21:26
DX: F32.9 Major depressive disorder, single episode, unspecified (principal); Z59.0 Homelessness; R45.851 Suicidal ideations; F20.9 Schizophrenia, unspecified
CPT/HCPCS: 36415; 80053; 80307; 81001; 83690; 85025; 87070; 93005; 93010; 96361; 96374; 99284; 99285; J2405; J3490; J7030